=== PATIENT | female | born 2000 | race Two or more races ===

== ENCOUNTER → 2024-06-18 | Outpatient (CLI) | payer MEDICAID ==
[2024-06-18 10:26] LABS: Alanine Aminotransferase 27 U/L (7-40); Albumin 4.6 g/dL (3.2-4.8); Alkaline Phosphatase 101 U/L (46-116); Anion Gap 9 (5-15); Aspartate Aminotransferase 17 U/L (13-40); BUN/Creatinine Ratio 19.7 (10.0-20.0); Bilirubin, Total 0.3 mg/dL (0.2-1.0); Blood Urea Nitrogen 15 mg/dL (9-23); Calcium 10.1 mg/dL (8.7-10.4); Carbon Dioxide 26 mmol/L (20-31); Chloride 103 mmol/L (98-107); Glucose 93 mg/dL (74-106); Potassium 4.1 mmol/L (3.5-5.1); Sodium 138 mmol/L (136-145); Total Protein 7.4 g/dL (5.7-8.2)
[2024-06-18 10:28] LABS: Beta HCG, Quantitative 0.3 mIU/mL (1.5-4.2)
[2024-06-18 10:31] LABS: Thyroid Stimulating Hormone 2.85 uIU/mL (0.55-4.78)
[2024-06-18 10:40] LABS: Follicle Stimulating Hormone 6.67 IU/L (SEE BELOW); Leuteinizing Hormone 3.6 IU/L
[2024-06-18 10:41] LABS: Free T4 (Free Thyroxine) 1.05 ng/dL (0.89-1.76)
[2024-06-18 10:58] LABS: Prolactin 206.97 ng/mL (2.8-29.2)
[2024-06-19 08:07] LABS: Estradiol 29.4 pg/mL (.)
== END | disposition home or self-care (01) ==
LOC: LAB 09:20
PROVIDERS: ATTEND Obstetrics & Gynecology
DX: E28.2 Polycystic ovarian syndrome (principal)
CPT/HCPCS: 36415; 80053; 82626; 82670; 83001; 83002; 83036; 84144; 84146; 84402; 84403; 84439; 84443; 84702